=== PATIENT | male | born 1950 | race Caucasian/White ===

== ENCOUNTER 2020-03-15 06:21 | Outpatient (CLI) | payer MEDICARE, OTHER ==
[2020-03-15 16:15] LABS: Hemoglobin 15.5 g/dL (14.0-18.0); Mean Corpuscular HGB CONC 35.2 g/dL (32.0-36.0); Mean Corpuscular Hemoglobin 33.3 pg (27.0-31.0); Mean Corpuscular Volume 94.5 fL (78.0-98.0); Mean Platelet Volume 8.8 fL (7.4-10.4); Platelet Count 247 thou/uL (130-400); RBC Distribution Width 11.9 % (11.5-14.5); Red Blood Cell (RBC) Count 4.65 mill/uL (4.70-6.10); White Blood Cell (WBC) Count 8.3 thou/uL (4.8-10.8)
[2020-03-15 16:27] LABS: PTT 26.7 sec (22.9-36.1); Prothrombin Time 12.7 sec (12.0-14.7)
[2020-03-16 14:38] LABS: SARS-CoV-2 MS2 Positive; SARS-CoV-2 N Gene Negative; SARS-CoV-2 S Gene Negative; SARS-CoV-2 orf1ab Negative
== END 2020-03-15 06:22 | disposition home or self-care (01) ==
LOC: LABBT 06:21
PROVIDERS: ATTEND Neurological Surgery
DX: Z01.812 Encounter for preprocedural laboratory examination (principal); Z11.59 Encounter for screening for other viral diseases; M48.061 Spinal stenosis, lumbar region without neurogenic claudication; M51.26 Other intervertebral disc displacement, lumbar region
CPT/HCPCS: 85027; 85610; 85730; U0003; 87635

== ENCOUNTER 2020-03-20 05:51 | Day surgery (SDC) | payer MEDICARE ==
[2020-03-13 11:08] VITALS: BMI 25.1
--- NOTE | 2020-03-17 19:53 | HP ---
SURGERY DATE: 03/20/2020. . CHIEF COMPLAINT: Lower back and bilateral leg pain. HISTORY OF PRESENT ILLNESS: Mr. Orozoc is a 69-year-old male with lower back and bilateral leg pain. He has a history of three lumbar surgeries. His last one being six years ago. He now has bilateral pain radiating into his gluteal muscles, posterior calves, and numbness in his bilateral anterior calves. 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 None of the physical therapy exercises are no longer working. He is worried now because he is experiencing left leg weakness. Previous spinal epidural injections have stopped working. He can only walk about 30 minutes, but in doing so, he has to lean forward or use offloading walking device such as a walker. He denies any bladder or bowel dysfunction. REVIEW OF SYSTEMS: CONSTITUTIONAL: Denies fever or chills. ENT: Denies change of vision or hearing. CARDIAC: Denies chest pain, shortness of breath, or diaphoresis. PULMONARY: Denies shortness of breath, cough, or hemoptysis. GI: Denies fecal incontinence, abdominal pain, nausea, vomiting, diarrhea, change in stool formation and consistency. : Denies urinary incontinence, trouble with urination, frequency of urination , or bloody urine. SKIN: Denies skin rash, bruising, bleeding, or skin masses. MUSCULOSKELETAL: As per history of present illness. NEUROLOGIC: As per history of present illness. PSYCHOLOGIC: Denies anxiety, depression, or behavior changes. MEDICAL HISTORY: Kidney stones, A-Fib, HTN, Arthritis, hands and fingers. SURGICAL HISTORY: L2-L3 surgery in 2000, L5-S1 left-sided hemilaminectomy and foraminotomy in 2011. FAMILY HISTORY: Father 50 years of age, leukemia. Mother 77 years of age, cancer. Family history of hypertension and colon cancer. SOCIAL HISTORY: . 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 Denies tobacco use. Occasionally drinks alcohol. Denies any illicit drugs. MEDICATIONS: 1. Ambien. 2. Ultram. 3. [place]. 4. Flexeril. 5. Benicar. 6. Nexium. 7. Celebrex. 8. Singulair. 9. Flomax. 10. Synthroid. 11. Lyrica. 12. Baby aspirin. 13. Cymbalta. 14. Levocetirizine. ALLERGIES: NO KNOWN DRUG ALLERGIES. PHYSICAL EXAMINATION: VITAL SIGNS: Weight 180 pounds and 71 inches. HEENT: Pupils are equal. Extraocular movements are intact. NECK: Normal, soft, and supple. No masses are noted. Range of motion is intact and nonpainful. NEUROLOGIC: Awake, alert, and oriented x3. Memory, attention, fund of knowledge, and language are normal. Cranial nerves normal and grossly intact. Lower extremities, he has 4/5 left EHL, otherwise normal bilateral strength in the hip flexors, knee flexion, knee extension, dorsiflexion, or plantar flexion. L4 radiculopathy. Sensory: Light touch intact. Gait and station: Sit to stand, normal, abnormal gait, walking with a limp. Unable to tandem walk. IMAGING: L-spine MRI: Canal stenosis at L2-L3, L3-L4, and L4-L5. Lumbar x-ray : Normal flex/ex. ASSESSMENT: Spinal stenosis lumbar region without neurogenic claudication, radiculopathy in lumbar region and bulging lumbar disk. PLAN: 1. L2-L3 and L3-L4 laminectomy, possible L3-L4 microdiskectomy. 2. Preop labs; CBC, PT, PTT, and COVID-19 testing. 3. Anesthesia clearance. INFORMED CONSENT: We discussed the indications, risks, benefits, alternatives, and expected results from surgery. The risks discussed included, but were not limited to, bleeding, infection, CSF leak, nerve damage, weakness, incontinence, cauda equina injury are arachnoiditis, paralysis, ventilator dependency, wheelchair dependency, loss of vision, cardiopulmonary complications of anesthesia, or . Long-term complications discussed included, but were not limited to spinal instability and future surgery. He understands the risk and is willing to proceed. Job ID: [id number] MTDD
[2020-03-20] MEDS ORDERED: Thrombin 5000 UNITS/5 ML VIAL ONE (06:12)
[2020-03-20] MEDS ORDERED: EPINEPHrine 1 MG/ML AMP ONE (06:12)
[2020-03-20] MEDS ORDERED: Bupivacaine PF 0.5% 30 ML VIAL ONE (06:12)
[2020-03-20] MEDS ORDERED: Fentanyl 100 MCG/2 ML VIAL ONE (06:38)
[2020-03-20] MEDS ORDERED: SUGAMMADEX SODIUM 200 MG/2 ML VIAL ONE (09:33)
[2020-03-20] MEDS ORDERED: Lidocaine 1% PF 5 ML VIAL ONE (09:43)
[2020-03-20] MEDS ORDERED: Ondansetron PF 4 MG/2 ML Vial ONE (09:43)
[2020-03-20] MEDS ORDERED: Rocuronium Bromide 10 MG/ML (10ML VIAL) ONE (09:43)
[2020-03-20] MEDS ORDERED: EPHEDRINE 25 MG/5 ML SYRINGE ONE (09:43)
[2020-03-20] MEDS ORDERED: Dexamethasone 20 MG/5 ML VIAL ONE (09:43)
[2020-03-20] MEDS ORDERED: PHENYLEPHRINE-NS 100 MCG/ML 10 ML SYRINGE ONE (09:43)
[2020-03-20] MEDS ORDERED: Ketorolac Tromethamine 30 MG/ML VIAL ONE (09:43)
[2020-03-20] MEDS ORDERED: PROPOFOL 200 MG/20 ML VIAL ONE (09:43)
[2020-03-20] MEDS ORDERED: Acetaminophen/Codeine 30-300mg Tablet ONE (11:20)
--- NOTE | 2020-03-20 12:01 | OP ---
DATE OF PROCEDURE: 03/20/2020 CHHA: Noble Higuera PA-C. PREOPERATIVE INDICATION: Treat pain and prevent neurological deterioration. PREOPERATIVE DIAGNOSES: Prior lumbar surgery, lumbar stenosis with neurogenic claudication at L2-L3 and L3-L4 with intervertebral disk herniation at L3-L4. POSTOPERATIVE DIAGNOSES: Prior lumbar surgery, lumbar stenosis with neurogenic claudication at L2-L3 and L3-L4 with intervertebral disk herniation at L3-L4. PROCEDURES PERFORMED: Decompressive laminectomy with medial facetectomy and foraminotomy at L2-L3 and L3-L4, microdiskectomy at L3-L4. PREOPERATIVE MEDICATION: Ancef 2 g IV. DRAIN NUMBER: Zero. DRAIN TYPE: None. DESCRIPTION OF PROCEDURE: The patient was brought to the operating room. General endotracheal anesthesia was induced. The patient was carefully positioned prone on the operating table with his chest and hips supported by gel-filled chest rolls. A lateral fluoro radiograph was used to plan an incision, which would give us access from L2 through L4. This extended the superior incision that the patient previously had. The lumbar skin was sterilely prepped and draped. We opened with a 10 blade knife and we controlled bleeding with bipolar cautery. We used monopolar cautery to dissect through subcutaneous tissues to the thoracodorsal fascia and scar tissue. We incised the fascia and scar tissue in the midline, reflected paraspinal muscles off the spinous process and lamina of L2, L3, and L4. A self-retaining retractor was placed. A lateral fluoro radiograph confirmed the levels upon which we were operating. We then used an Adson rongeur to remove the spinous process of L2-L3 and the superior portion of L4. We used a Kerrison rongeur to fashion a laminectomy down the midline. We widened our laminectomy defect with Kerrison rongeurs. At the L2-L3 and L3-L4 interspace, we needed to decompress the lateral recesses. This was done with medial facetectomies on either side and we performed foraminotomies over the exiting nerve roots to make a Kerr ball probe could pass out the foramen without impingement. We then turned our attention to the disk herniation at L3-L4. The operating microscope was brought into the field. Under microscopic magnification using microsurgical techniques, we gently retracted the thecal sac medially at the L3-L4 interspace. There was protruding disk in the ventral epidural space. We incised the surface of the disk and disk contents came out under pressure. Multiple fragments of loose disk were removed. We reached into the interspace and found a few more fragments of loose disk. The remainder of the disk was firmly adherent to the endplates and we left that in place. We irrigated with bacitracin irrigation. We placed a small pledget of harvested muscle into the annular defect. We controlled bleeding with gentle bipolar cautery. We waxed the bone edges. We infused local anesthetic in the paraspinal muscles. We closed in anatomical layers and we applied a sterile dressing. This was a clean case, no contamination. Job ID: [id number]
[2020-03-20] MEDS ORDERED: Ondansetron ODT 4 MG TAB ONE (12:15)
== END 2020-03-20 13:15 | disposition home or self-care (01) ==
LOC: SDC 05:51
PROVIDERS: ATTEND Neurological Surgery
PROC: 01NB0ZZ Release Lumbar Nerve, Open Approach (ICD-10-PCS; principal; 2020-03-20)
PROC: 0ST20ZZ Resection of Lumbar Vertebral Disc, Open Approach (ICD-10-PCS; 2020-03-20)
DX: M48.062 Spinal stenosis, lumbar region with neurogenic claudication (principal); M51.16 Intervertebral disc disorders with radiculopathy, lumbar region; I48.91 Unspecified atrial fibrillation; I10 Essential (primary) hypertension; M19.042 Primary osteoarthritis, left hand; M19.041 Primary osteoarthritis, right hand; E03.9 Hypothyroidism, unspecified; K21.9 Gastro-esophageal reflux disease without esophagitis; N40.0 Benign prostatic hyperplasia without lower urinary tract symptoms; Z79.82 Long term (current) use of aspirin; Z79.899 Other long term (current) drug therapy; Z98.890 Other specified postprocedural states
CPT/HCPCS: 76000; J0171; J0690; J1100; J1885; J2405; J2704; J3010; J3370; J3490; Q0162; S0020